=== PATIENT | female | born 2000 | race Two or more races ===

== ENCOUNTER 2020-04-29 13:24 | Emergency (ER) | payer MEDICAID, OTHER ==
[~2020-04-29] VITALS: Ht 157.5 cm; Wt 61.2 kg
[2020-04-29 13:34] VITALS: BP 140/79
[2020-04-29 14:56] LABS: Basophils # (auto) 0 10 ^3/uL (0-0.2); Eosinophils # (auto) 0 10 ^3/uL (0-0.8); Hemoglobin 12.4 g/dL (12.2-16.2); Mean Corpuscular Hgb Conc. 32.8 g/dL (32.0-36.0); Monocytes # (auto) 0.6 10 ^3/uL (0-1.3)
[2020-04-29 14:58] LABS: Basophils % (auto) 0.3 % (0.0-2.0); Eosinophils % (auto) 0.4 % (0.0-7.0); Hematocrit 37.7 % (36.0-46.0); Lymphocytes # (auto) 2.2 10 ^3/uL (0.4-5.4); Mean Corpuscular Hemoglobin 25.4 pg (28.0-32.0); Mean Corpuscular Volume 77.5 fL (80.0-100.0); Monocytes % (auto) 5.3 % (0.0-12.0); Neutrophils # (auto) 8.5 10 ^3/uL (1.6-8.6); Nucleated Red Blood Cells % 0.1 %; Platelet Count (auto) 298 10^3/uL (140-450); Red Blood Cells 4.87 10^6/uL (4.0-5.20); Red Cell Distribution Width 15.8 % (11.8-14.3); White Blood Cell 11.4 10^3/uL (4.4-10.8)
== END 2020-04-29 16:46 | disposition home or self-care (01) ==
LOC: ER 13:24
DX: O02.1 Missed abortion (principal); Z3A.08 8 weeks gestation of pregnancy
CPT/HCPCS: 36415; 76801; 76817; 84702; 85025